=== PATIENT | female | born 1955 | race African-American/Black ===

== ENCOUNTER 2017-03-12 16:16 | Emergency (ER) | payer OTHER ==
[~2017-03-12] VITALS: Ht 165.1 cm; Wt 140.6 kg
[2017-03-12] MEDS ORDERED: methylPREDNISolone SOD SUCC PF 125 MG/2 ML VIAL. IV ONE (16:45)
[2017-03-12] MEDS ORDERED: FAMOTIDINE 20 MG TABLET. PO ONE (16:45)
[2017-03-12 19:03] VITALS: BP 197/69
[2017-03-12] MEDS ORDERED: FAMO-63 PO (19:22)
[2017-03-12] MEDS ORDERED: PRED50TA PO (19:22)
--- NOTE | 2017-03-12 19:22 | PHYS DOC ---
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 Shortly after tasting the soup patient had onset of itching and hives. She did not actually get shortness of breath but she felt tingling in her throat. She had no voice changes or difficulty breathing. Patient took 50 mg of Benadryl and states she now feels improved. Review of Systems Review of Systems Constitutional: Denies fever or chills [] Eyes: Denies change in visual acuity, redness, or eye pain [] HENT: Denies nasal congestion or sore throat [] Respiratory: Denies cough or shortness of breath [] Cardiovascular: No additional information not addressed in HPI [] GI: Denies abdominal pain, nausea, vomiting, bloody stools or diarrhea [] : Denies dysuria or hematuria [] Musculoskeletal: Denies back pain or joint pain [] Integument: Urticaria as above Neurologic: Denies headache, focal weakness or sensory changes [] Endocrine: Denies polyuria or polydipsia [] Current Medications Current Medications Current Medications Medications (Trade) Dose Ordered Sig/Jm Start Time Stop Time Status Last Admin Dose Admin Famotidine (Pepcid) 20 mg 1X ONCE 03/12/17 16:45 03/12/17 16:48 DC 03/12/17 16:57 20 MG Methylprednisolone Sodium Succinate (SOLU-Medrol 125MG VIAL) 125 mg 1X ONCE 03/12/17 16:45 03/12/17 16:48 DC 03/12/17 16:58 125 MG Allergies Allergies Allergies Coded Allergies Type Severity Reaction Last Updated Verified Fish Containing Products Allergy Severe SEAFOOD; THROAT SWELLING, ITCHING/ HIVES 03/12/17 No Penicillins Allergy Intermediate 09/16/15 Yes Sulfa (Sulfonamide Antibiotics) Allergy Intermediate 09/16/15 Yes adhesive Allergy Intermediate 09/16/15 Yes aspirin Allergy Intermediate 09/16/15 Yes erythromycin base Allergy Intermediate 09/16/15 Yes iodine Allergy Intermediate 09/16/15 Yes latex Allergy Intermediate 09/16/15 Yes Physical Exam Physical Exam Well-appearing female no acute distress mild urticaria improved by patient's description. No wheezing no stridor normal voice hemodynamically stable. Constitutional: Well developed, well nourished, no acute distress, non-toxic appearance. [] HENT: Normocephalic, atraumatic, bilateral external ears normal, oropharynx moist, no oral exudates, nose normal. [] Eyes: PERRLA, EOMI, conjunctiva normal, no discharge. [] Neck: Normal range of motion, no tenderness, supple, no stridor. [] Cardiovascular:Heart rate regular rhythm, no murmur [] Lungs & Thorax: Bilateral breath sounds clear to auscultation [] Abdomen: Bowel sounds normal, soft, no tenderness, no masses, no pulsatile masses. [] Skin: Urticaria as above Back: No tenderness, no CVA tenderness. [] Extremities: No tenderness, no cyanosis, no clubbing, ROM intact, no edema. [] Neurologic: Alert and oriented X 3, normal motor function, normal sensory function, no focal deficits noted. [] Psychologic: Affect normal, judgement normal, mood normal. [] Current Patient Data Vital Signs Vital Signs Date Time Temp Pulse Resp B/P (MAP) Pulse Ox O2 Delivery O2 Flow Rate FiO2 03/12/17 16:22 97.8 90 22 221/101 (141) 98 Room Air 97.8 EKG EKG [EKG with normal sinus rhythm at 85 normal axis no STEMI interpreted by me] Radiology/Procedures Radiology/Procedures [] Course & Med Decision Making Course & Med Decision Making Signs and symptoms consistent with allergic reaction without airway involvement. Patient observed for 3 hours in the emergency department. She remains clinically stable and her itching and hives resolved after treatment. Patient aware to finish prednisone as prescribed take Benadryl and Pepcid as needed for symptoms. Patient is aware that it's critically important for her to be compliant with her blood pressure regimen. While her blood pressure was elevated on arrival she was asymptomatic other than her allergic reaction symptoms and her repeat blood pressure was 179/69 prior to discharge no further workup or treatment indicated. Patient and agree with outpatient follow- up and strict return precautions given Pertinent Labs and Imaging studies reviewed. (See chart for details) [] Dragon Disclaimer Dragon Disclaimer This electronic medical record was generated, in whole or in part, using a voice recognition dictation system. Departure Departure Impression: Primary Impression: Allergic reaction Additional Impressions: Urticaria Uncontrolled hypertension Noncompliance with medication regimen Disposition: HOME, SELF-CARE Referrals: ORACIO RUBIO (PCP) Patient Instructions: Drug Allergy, [id number], Hives Additional Instructions: It appears you've experienced an allergic reaction today. Finish prednisone as prescribed once a day. Use Benadryl and take Pepcid as needed for itching or symptoms of allergic reaction. Follow-up with your doctor tomorrow and return immediately for new severe worsening symptoms specifically for signs of airway involvement. Scripts Prednisone (PREDNISONE) 50 Mg Tablet 1 TAB PO DAILY, #5 TAB Prov: GAGE RUCKER MD 03/12/17 Famotidine (PEPCID) 20 Mg Tablet 20 MG PO BID Y for ALLERGIES, #14 TAB Prov: GAGE RUCKER MD 03/12/17 Problem Qualifiers GAGE RUCKER MD Mar 12, 2017 19:22
--- NOTE | 2017-03-13 07:42 | EKG ---
[facility] [address] [place] [address] Test Date: 2017-03-12 Test Time: 16:30:31 Pat Name: EBER ABARCA Department: Room: Gender: F Field Operator: : 1955 Requested By: GAGE RUCKER Order Number: [id number] Reading MD: Kaylan Quezada Measurements Intervals [place] Rate: 85 P: 57 TN: 128 QRS: 43 QRSD: 88 T: 52 QT: 372 QTc: 448 Interpretive Statements SINUS RHYTHM NORMAL EKG Electronically Signed On 03-15-2017 14:43:14 CDT by Kaylan Quezada
== END 2017-03-12 19:39 | disposition home or self-care (01) ==
LOC: ER 16:16
DX: T78.1XXA Other adverse food reactions, not elsewhere classified, initial encounter (principal); E11.9 Type 2 diabetes mellitus without complications; G89.29 Other chronic pain; I10 Essential (primary) hypertension; J45.909 Unspecified asthma, uncomplicated; M10.9 Gout, unspecified; L50.9 Urticaria, unspecified; Z88.2 Allergy status to sulfonamides; Z88.8 Allergy status to other drugs, medicaments and biological substances; Z88.6 Allergy status to analgesic agent; Z88.1 Allergy status to other antibiotic agents; Z91.041 Radiographic dye allergy status; Z91.040 Latex allergy status; Z88.0 Allergy status to penicillin; Z91.013 Allergy to seafood; X58.XXXA Exposure to other specified factors, initial encounter
CPT/HCPCS: 93005; 96374; 99284; J2930

== ENCOUNTER 2017-07-16 18:44 | Emergency (ER) | payer OTHER ==
[2017-07-16] MEDS: IPRATRPIUM/ALBUTEROL 0.5/2.5MG 3 ML NEBU. NEB (20:12)
[2017-07-16] MEDS: predniSONE 10 MG TABLET PO (20:31)
== END 2017-07-16 20:37 | disposition home or self-care (01) ==
LOC: ER 18:44
DX: J40 Bronchitis, not specified as acute or chronic (principal); I10 Essential (primary) hypertension; G89.29 Other chronic pain; E11.9 Type 2 diabetes mellitus without complications; M10.9 Gout, unspecified; J45.909 Unspecified asthma, uncomplicated; Z88.2 Allergy status to sulfonamides; Z88.1 Allergy status to other antibiotic agents; Z88.0 Allergy status to penicillin; Z88.8 Allergy status to other drugs, medicaments and biological substances; Z88.6 Allergy status to analgesic agent; Z91.041 Radiographic dye allergy status; Z91.040 Latex allergy status; Z91.013 Allergy to seafood
CPT/HCPCS: 94640; 99283; J7512; J7620

== ENCOUNTER → 2017-09-15 | Outpatient (CLI) | payer OTHER | END | disposition home or self-care (01) | LOC: RAD 15:19 | DX: M79.602 Pain in left arm (principal); M79.642 Pain in left hand; M25.522 Pain in left elbow; I10 Essential (primary) hypertension; E11.22 Type 2 diabetes mellitus with diabetic chronic kidney disease | CPT/HCPCS: 73070; 73090; 73130 ==